=== PATIENT | female | born 2000 | race Caucasian/White ===

== ENCOUNTER 2021-03-25 14:11 | Emergency (ER) | payer SELFPAY ==
[~2021-03-25] VITALS: Ht 149.9 cm; Wt 45.4 kg
[2021-03-25 14:47] VITALS: BP 118/67
--- NOTE | 2021-03-25 15:04 | NUR ---
PT SEEN BY SHIRA CASTILLO
== END 2021-03-25 15:25 | disposition home or self-care (01) ==
LOC: ER 14:18
DX: R21 Rash and other nonspecific skin eruption (principal); J45.909 Unspecified asthma, uncomplicated